=== PATIENT | male | born 1945 | race Caucasian/White ===

== ENCOUNTER 2025-01-26 06:02 | Inpatient (IN) | payer MEDICARE, BC, SELFPAY ==
[2025-01-13 10:02] VITALS: BMI 28.7
[2025-01-13 10:29] LABS: % Basophils 1.2 % (0-2); % Eosinophils 2.9 % (0-6); % Immature Granulocytes 0.2 % (0-0.5); % Lymphocytes 32.3 % (20.5-51.1); % Monocytes 10.4 % (1.7-9.3); Absolute Basophils 0.1 10^3/uL (0-0.2); Absolute Eosinophils 0.3 10^3/uL (0-0.7); Absolute Lymphocytes 2.8 10^3/uL (1.2-3.4); Absolute Monocytes 0.9 10^3/uL (0.1-0.6); Absolute Neutrophils 4.5 10^3/uL (1.4-6.5); Hematocrit 46.9 % (39.0-52.0); Hemoglobin 15.9 g/dL (13.0-18.0); Mean Corp Hgb Conc. 33.9 g/dL (33.0-37.0); Mean Corpuscular Hgb 30.1 pg (27.0-31.0); Mean Corpuscular Volume 88.8 fL (80.0-94.0); Mean Platelet Volume 10.7 fL (7.4-10.4); Nucleated Red Blood Cells % 0 % (-); Platelet Count 226 10^3/uL (130-400); Red Blood Cell Count 5.28 10^6/uL (4.70-6.10); Red Cell Dist. Width 15.3 % (11.5-14.5); White Blood Cell Count 8.5 10^3/uL (4.8-10.8)
[2025-01-13 10:39] LABS: INR 1.01; PT 13.8 Sec (11.4-14.6)
[2025-01-13 10:41] LABS: ALT (SGPT) 35 U/L (0-50); AST (SGOT) 36 U/L (17-59); Albumin 4.4 g/dl (3.5-5.0); Alkaline Phosphatase 131 U/L (38-126); Blood Urea Nitrogen 21 mg/dl (9-20); Calcium 9.3 mg/dl (8.4-10.2); Carbon Dioxide 28 mmol/L (22-30); Chloride 103 mmol/L (98-107); Estimated Creatinine Clearance 54 ml/min; Glucose 130 mg/dl (70-99); Sodium 139 mmol/L (135-145); Total Bilirubin 0.8 mg/dl (0.2-1.3); Total Protein 8.3 g/dl (6.3-8.2); eGFR > 60.00
[2025-01-26] VITALS (16 sets, daily range): BP systolic 111–166; BP diastolic 75–112; BMI 28.7
[2025-01-26 08:51] LABS: ACT-LR - POC 250 Seconds (116-155)
[2025-01-26 09:13] LABS: ACT-LR - POC 392 Seconds (116-155)
--- NOTE | 2025-01-26 09:32 | ITS.CL.PN ---
Communications Marketing Intern - Procedure Note
Procedure
Procedure Note:
Watchman implantation report
Date: January 26, 2025
History: History of GI bleeding and prior history of portal vein isolation with atrial fibrillation
Procedure report:
Watchman implant: Kinjal
Groin access and transseptal pick pulling machine operator Baez
After informed consent patient safety timeout the patient was sedated by the anesthesiology service with general anesthesia. JACKELINE was performed see separate report. No left atrial appendage thrombus was noted at baseline. Under direct ultrasound
guidance the right femoral vein was accessed with an 8 Mongolian and 9 Mongolian sheaths. Intracardiac ultrasound was placed to the right atrium demonstrating no pericardial effusion pre and post procedure. This was utilized to guide transseptal
puncture. Anatomy was somewhat challenging giving a small narrow fossa relatively anteriorly directed.
Over the pigtail wire the watchman sheath with radiofrequency wire and dilator was advanced into the SVC and withdrawn to the mid anterior interatrial fossa. Utilizing radiofrequency energy the left atrium was accessed with a pigtail wire and the
watchman sheath was brought into the left atrium. The pigtail wire engaged the left atrial pended demonstrating an extreme anterior windsock and short working depth and a 21 to 22 mm ostium. Up to this point I performed this portion of the
procedure. Then Dr. Layton delivered the device as below. We initially utilized a 27 mm device with multiple orientations and there is too much mitral shoulder with deployment of this device. We then brought a 24 mm device to the field which with
the initial sheath still could not deliver distally without a significant mitral shoulder. We then exchanged over a pigtail wire and brought the true steer sheath into the left atrium which allowed us to steer more anterior to utilize the depth of
the appendage anteriorly and deliver a 24 mm device with a 15 to 20% compression meeting Pass criteria. Delivery was somewhat distal and was without mitral shoulder with 15 to 20% compression, tug test did not displace the device, and there was no
leak or abnormal flow around the device at JACKELINE. There was no pericardial fusion of deployment.
As the 24 mm device met Pass criteria the device was delivered and sheaths and catheters were removed to the right atrium. During left atrial access heparin was given through bolus and drip maintaining an ACT greater than 350 seconds. With removal
of sheath in the right atrium 40 mg of protamine was delivered and [id number] suture was placed in the right femoral vein access area after withdrawal of sheets from the body. Patient tolerated the procedure well.
Impression:
Challenging anterior windsock anatomy which required multiple devices and sheaths ultimately delivering a 24 mm device which matched Pass criteria.
Plan:
Oral anticoagulation 2.5 mg p.o. twice daily x 3 months with JACKELINE in 3 months
--- NOTE | 2025-01-26 12:42 | WATCHMAN.MD ---
Watchman Implant
-
ELECTROPHYSIOLOGY/INTERVENTIONAL PROCEDURE REPORT
Date of Procedure: January 26, 2025
Referring: Amanuel Velasco
Assisting Physician: Taqueria Baez
PROCEDURES:
1. Left atrial appendage occlusion device using 24 mm WATCHMAN FLX device
2. Intracardiac echocardiography
3. Ultrasound-guided right common femoral venous access
INDICATION: History of GI bleeding with paroxysmal atrial fibrillation warranting long-term full anticoagulation to reduce risk of thromboembolic events.
ACCESS: Right common femoral vein, 16Fr sheath and 9Fr. sheaths, under US guidance using micropunture kit.
HEMODYNAMICS : (mmHg)
LA Pressure: 12
PROCEDURE REPORT:
After informed consent and patient safety 'Timeout' the patient was intubated and sedated by the anesthesiology service. Under ultrasound guidance, the right femoral vein was accessed by Dr. Taqueria Baez twice for transseptal puncture and
intracardiac ultrasound, respectively. Concomitant transesophageal echocardiogram was performed by Dr. Lee
Baseline intracardiac ultrasound demonstrated no pericardial effusion and baseline JACKELINE images revealed a trace pericardial effusion.
After ruling out a left atrial appendage thrombus, the patient was heparinized for an ACT between 350-400 seconds and under JACKELINE and intracardiac ultrasound guidance transseptal puncture was performed by Dr. Taqueria Baez using the [place] versa cross
trans-septal system in a mid position on the inferior-superior axis and a mid position on the anterior-posterior axis. Left atrial pressure was 12 millimeters mercury.
Once transseptal puncture was performed over the versa cross 0.035 wire parked in the body of the left atrial appendage, the watchman access double curve sheath was advanced over this into the left atrium. A 5 Gabonese pigtail catheter was placed
into the left atrial appendage and an appendage gram was performed using intravenous contrast dye demonstrating a windsock type anatomy that was suitable likely for a 27 mm WATCHMAN FLX device. After appropriately prepping the device, Dr. Ly
Maame deployed a 27 mm Watchman FLX device however despite multiple recaptures and reattempt, the device had a significant mitral shoulder. At this point we decided to switch out the device for a smaller device.
After appropriately prepping the device, Dr. Aliyah Layton deployed a 24 mm WATCHMAN FLX device. Similar to the 27 mm device, despite multiple recaptures and reattempts, the device continued to have a significant mitral shoulder and appeared
canted. At this point we decided to switch out the double curve sheath for a Ari steer to allow for better coaxial deployment.
The versa cross wire was brought back in and over this wire which provided support we switched out the watchman access double curve sheath for a Ari steer sheath. Using this we reprepped the 24 mm Watchman FLX device and successfully deployed this
device a bit deeper than prior attempts. Device showed excellent positioning with no leaks post device deployment. 15 to 20 % compression was noted in the device after deployment. A 'tug-test' was performed demonstrating stability of the device.
Given PASS criteria were met, the device was then released successfully by Dr. Aliyah Layton MD
Post procedure, JACKELINE imaging demonstrated no new or worse pericardial effusion. Sheaths and catheters were removed from the left atrium and heparin was reversed using protamine. Catheters removed from the femoral veins with [id number] suture
applied. The patient tolerated the procedure well.
RADIATION SUMMARY: Fluoro Time (min): 31.9, Dose (mGy): 922.7, DAP (Gy.cm2) : 102
Closure Device: Figure of 8 suture
CONCLUSIONS
1. Successful deployment of 24 mm WATCHMAN FLX device under JACKELINE and ICE guidance.
RECOMMENDATIONS
1. Plan for daily Eliquis 2.5 mg twice daily for the next 3 months.
2. 90-day JACKELINE post procedure to assess stability of device and rule out any arpita-device leaks.
3. Figure of 8 suture removal prior to discharge.
Copy to: Amnauel Velasco MD and Godfrey Man MD
Aliyah Layton MD, [facility], [facility]
--- NOTE | 2025-01-26 13:37 | W.DS.TRANS ---
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
-
Discharge Instructions:
Discharge Diagnosis/Procedures AFib, s/p watchman device implant
Diet Low Cholesterol
Driving Restrictions No driving for 24 hours
Others Tests Follow up JACKELINE is scheduled for you at [facility] on 04/23/[address] Horton. You
will receive instructions in the mail and a call
the day prior with arrival time. Pre-admission
testing is on 04/16/2025 at 10am at [facility]-Ground Floor of the Critical Care and
[facility]ovascular [facility].
Instructions:
Stand-Alone Forms: DC Instructions- Cath/EP Lab
Changes to Home Medications: No
Discharge Medications:
DC Medications w/original date entered in [facility]
mecobalamin (vitamin B12) 1,000 mcg disintegrating tablet,sublingual 1,000 mcg sublingual DAILY 06/17/17
apixaban 2.5 mg tablet (Eliquis) 2.5 mg PO BID 01/07/25
diltiazem HCl 120 mg capsule,24 hr,extended release 120 mg PO DAILY 01/07/25
Home Medication Changes
Pending Results: No
== END 2025-01-26 15:45 | disposition home or self-care (01) | DRG 274 ==
LOC: CATH-IN 06:02
PROVIDERS: Student in an Organized Health Care Education/Training Program; ADMITTING PHYSICIAN Internal Medicine Cardiovascular Disease; FAMILY PHYSICIAN Family Medicine
PROC: 02L73DK Occlusion of Left Atrial Appendage with Intraluminal Device, Percutaneous Approach (ICD-10-PCS; 2025-01-26)
PROC: B246ZZ4 Ultrasonography of Right and Left Heart, Transesophageal (ICD-10-PCS; 2025-01-26)
DX: I48.21 Permanent atrial fibrillation (principal); D68.59 Other primary thrombophilia; E53.8 Deficiency of other specified B group vitamins; I10 Essential (primary) hypertension; J43.9 Emphysema, unspecified; F17.210 Nicotine dependence, cigarettes, uncomplicated; G47.33 Obstructive sleep apnea (adult) (pediatric); K76.0 Fatty (change of) liver, not elsewhere classified; K21.9 Gastro-esophageal reflux disease without esophagitis; M19.90 Unspecified osteoarthritis, unspecified site; Z96.652 Presence of left artificial knee joint; Z79.01 Long term (current) use of anticoagulants; Z87.19 Personal history of other diseases of the digestive system; Z91.199 Patient's noncompliance with other medical treatment and regimen due to unspecified reason
CPT/HCPCS: 36415; 80053; 85025; 85610; 86850; 86900; 86901; 87070; 93005; 93355

== ENCOUNTER → 2025-04-16 09:42 | Outpatient (REF) | payer MEDICARE, BC, SELFPAY | LOC: SDSPAT 09:42 | PROVIDERS: ATTENDING PHYSICIAN Internal Medicine Cardiovascular Disease; FAMILY PHYSICIAN Family Medicine; OTHER PHYSICIAN Internal Medicine Cardiovascular Disease | DX: I48.91 Unspecified atrial fibrillation (principal) | CPT/HCPCS: 93005 ==

== ENCOUNTER 2025-04-23 06:50 | Day surgery (SDC) | payer MEDICARE, BC, SELFPAY ==
[2025-04-16 12:20] VITALS: BMI 28.2
== END 2025-04-23 10:11 | disposition home or self-care (01) ==
LOC: CATH 06:50
PROVIDERS: ATTENDING PHYSICIAN Internal Medicine Cardiovascular Disease; FAMILY PHYSICIAN Family Medicine; OTHER PHYSICIAN Internal Medicine Cardiovascular Disease
DX: Z45.09 Encounter for adjustment and management of other cardiac device (principal); I48.21 Permanent atrial fibrillation; Z79.01 Long term (current) use of anticoagulants; K57.91 Diverticulosis of intestine, part unspecified, without perforation or abscess with bleeding; D68.59 Other primary thrombophilia; I10 Essential (primary) hypertension; J43.9 Emphysema, unspecified; K76.0 Fatty (change of) liver, not elsewhere classified; G47.33 Obstructive sleep apnea (adult) (pediatric); M19.90 Unspecified osteoarthritis, unspecified site; K21.9 Gastro-esophageal reflux disease without esophagitis; E53.8 Deficiency of other specified B group vitamins; Z96.652 Presence of left artificial knee joint; Z95.818 Presence of other cardiac implants and grafts; Z88.5 Allergy status to narcotic agent; F17.210 Nicotine dependence, cigarettes, uncomplicated; Z79.899 Other long term (current) drug therapy
CPT/HCPCS: 93312; 93320; 93325